=== PATIENT | male | born 1990 | race American Indian/Alaskan Native ===

== ENCOUNTER 2017-10-22 14:57 | Emergency (ER) | payer SELFPAY ==
[2017-10-22 15:15] VITALS: BP 144/100
[2017-10-22] MEDS ORDERED: NORCO 10/325 ONE (15:16)
[2017-10-22] MEDS ORDERED: ZOFRAN ODT ONE (15:16)
[2017-10-22] MEDS ORDERED: NORCO 10/325 PO ONE (15:40)
[2017-10-22] MEDS ORDERED: ZOFRAN ODT PO ONE (15:40)
--- NOTE | 2017-10-22 17:04 | XRay Report ---
FINAL REPORT EXAM: XR FINGER(S) 2+V RT HISTORY: pain r/t deep laceration COMPARISON: None. TECHNIQUE: Two views of the 2nd and 4th digits FINDINGS: There is a linear lucency at the medial base of the distal phalanx of the 4th digit that may represent a nondisplaced fracture. The remainder of the bones are intact. The joint spaces are preserved. There is no radiopaque foreign body. IMPRESSION: Possible nondisplaced fracture of the distal phalanx of the 4th digit. The remainder of the bones are intact.
[2017-10-22] MEDS ORDERED: NORCO 5/325 ONE (19:45)
[2017-10-22] MEDS ORDERED: NORCO 5/325 PO ONE (19:47)
[2017-10-22] MEDS ORDERED: TRIPLE ANTIBIOTIC TP ONE (19:48)
[2017-10-22] MEDS ORDERED: BOOSTRIX IM ONE (19:48)
[2017-10-22] MEDS ORDERED: ROCEPHIN IM ONE (19:49)
[2017-10-22] MEDS ORDERED: XYLOCAINE 1% MPF 5 mL INFILTRATI ONE (19:49)
--- NOTE | 2017-10-22 19:50 | Emergency Department Report ---
- General Chief Complaint: Wound/Laceration Stated Complaint: RIGHT HAND FINGER LACERATION Time Seen by Provider: 10/22/17 19:32 Source: patient Mode of arrival: Ambulatory Limitations: No Limitations - History of Present Illness Initial Comments: 27-year-old male past medical history hypertension presents with complaint of lacerations to right hand on index finger and ring finger. As per patient while he was under the head of his vehicle the radiator fan made contact with his hands. Visible multiple lacerations to index and ring finger right hand. Patient is right-handed. Some visible bleeding. Denies injuries to any other body part. Patient is awake alert and oriented 3. States it is painful. He is unaware of last tetanus up-to-date. -: This afternoon Location: other Extremity Location: Right: Hand Place: home Patient Tetanus UTD: No Context: accidental Associated Symptoms: pain - Related Data Previous Rx's Medication Instructions Recorded Last Taken Type Acetaminophen/Codeine [Tylenol 1 tab PO Q6H PRN #10 tab 10/22/17 Unknown Rx /Codeine # 3 tab] Bacitracin Zinc Oint [Antibiotic 1 applicatio TP BID #1 tube 10/22/17 Unknown Rx Oint] Cephalexin [Keflex] 500 mg PO BID #20 capsule 10/22/17 Unknown Rx Ibuprofen [Motrin] 800 mg PO Q8HR PRN #20 tablet 10/22/17 Unknown Rx Allergies Allergy/AdvReac Type Severity Reaction Status Date / Time No Known Allergies Allergy Unverified 10/22/17 15:15 ED Review of Systems ROS: Stated complaint: RIGHT HAND FINGER LACERATION Other details as noted in HPI Constitutional: denies: chills, fever Eyes: denies: eye pain, eye discharge, vision change ENT: denies: ear pain, throat pain Respiratory: denies: cough, shortness of breath, wheezing Cardiovascular: denies: chest pain, palpitations Endocrine: no symptoms reported Gastrointestinal: denies: abdominal pain, nausea, diarrhea Genitourinary: denies: urgency, dysuria Musculoskeletal: as per HPI (injury to right hand today). denies: back pain, joint swelling, arthralgia Skin: denies: rash, lesions Neurological: denies: headache, weakness, paresthesias Psychiatric: denies: anxiety, depression Hematological/Lymphatic: denies: easy bleeding, easy bruising ED Past Medical Hx - Past Medical History Previous Medical History?: No Hx Hypertension: Yes - Social History Smoking Status: Unknown if ever smoked Substance Use Type: None - Medications Home Medications: Home Medications Medication Instructions Recorded Confirmed Last Taken Type Acetaminophen/Codeine [Tylenol 1 tab PO Q6H PRN #10 tab 10/22/17 Unknown Rx /Codeine # 3 tab] Bacitracin Zinc Oint [Antibiotic 1 applicatio TP BID #1 tube 10/22/17 Unknown Rx Oint] Cephalexin [Keflex] 500 mg PO BID #20 capsule 10/22/17 Unknown Rx Ibuprofen [Motrin] 800 mg PO Q8HR PRN #20 tablet 10/22/17 Unknown Rx ED Physical Exam - General Limitations: No Limitations General appearance: alert, in no apparent distress - Head Head exam: Present: atraumatic, normocephalic - Eye Eye exam: Present: normal appearance, PERRL, EOMI - ENT ENT exam: Present: mucous membranes moist - Neck Neck exam: Present: normal inspection - Respiratory Respiratory exam: Present: normal lung sounds bilaterally. Absent: respiratory distress - Cardiovascular Cardiovascular Exam: Present: regular rate, normal rhythm. Absent: systolic murmur, diastolic murmur, rubs, gallop - GI/Abdominal GI/Abdominal exam: Present: soft, normal bowel sounds - Rectal Rectal exam: Present: deferred - Extremities Exam Extremities exam: Present: normal inspection - Expanded Upper Extremity Exam Right Shoulder Exam: Present: normal inspection, full ROM Upper Arm exam: Present: normal inspection, full ROM Elbow exam: Present: normal inspection, full ROM Forearm Wrist exam: Present: normal inspection, full ROM Hand Wrist exam: Present: tenderness, swelling, abrasion, laceration Hand L/R Front: 1 - Positive: laceration (diagonal 1 cm lacerations here with small avulsion) 2 - Positive: laceration (small piece of avulsed skin with associated jagged laceration), avulsion Neuro motor exam: Present: wrist extension intact, thumb opposition intact, thumb IP flexion intact, thumb adduction intact, fingers 2-5 abduction intact, other (lumbrical motion intact. Flexion and extension clinically intact all joints right hand and fingers including MCPs DIPs and PIPs. Flexion and extension intact against resistance all fingers and hand) Neurosensory exam: Present: radial nerve intact, ulnar nerve intact (distal sensation all fingers clinically intact to proprioception and light touch), median nerve intact Vascular: Present: normal capillary refill (capillary refill less than one second all fingers), radial pulse (distal radial brachial and ulnar pulses strong to palpation), brachial pulse, ulnar pulse - Back Exam Back exam: Present: normal inspection - Neurological Exam Neurological exam: Present: alert, oriented X3, CN II-XII intact, normal gait - Psychiatric Psychiatric exam: Present: normal affect, normal mood - Skin Skin exam: Present: warm, dry, intact, normal color. Absent: rash ED Course Vital Signs 10/22/17 10/22/17 15:10 15:41 Temperature 98 F Pulse Rate 110 H Respiratory 20 20 Rate Blood Pressure 144/100 O2 Sat by Pulse 98 Oximetry - Laceration /Wound Repair Right Distal Finger Wound Location: upper extremity (right distal index and ring fingers) Wound Length (cm): 2 Wound's Depth, Shape: irregular Irrigated w/ Saline (ccs): 500 Anesthesia: 1% Lidocaine Volume Anesthetic (ccs): 3 Wound Repaired With: sutures Suture Size/Type: 4:0, nylon Number of Sutures: 5 Sterile Dressing Applied?: Yes (Xeroform with gauze wrap) Progress: Digital blocks performed for both index and ring fingers right hand. Good local anesthesia achieved. 2 sutures placed at index finger at site of laceration and 3 at distal tuft of ring finger. Moderate closure achieved. Both areas had some avulsed skin. Area of avulsion covered with Xeroform then dry gauze and finger splints placed on both fingertips. Area is cleaned with iodine tap water and saline bath before closure. Procedure tolerated well. Minimal bleeding. Neurovascular exam of right hand and digits clinically normal. ED Medical Decision Making - Medical Decision Making A/P: Multiple abrasions and lacerations right distal index and ring finger, skin avulsions, fingertip fracture 1-patient given dose of ceftriaxone while in ED, ten-day course of Keflex. I educated patient on wound care and advised them to return to the ED for any signs of pus drainage erythema foul odor or significant pain or worsening pain and swelling at site of both index and ring finger lacerations. Tetanus vaccine updated today 2-Motrin and Tylenol 3 when necessary 3-bacitracin to superficial abrasions 4- I provided patient with follow-up information for [facility] and shoulder and elbow orthopedics 5- vital signs stable before discharge. Wound check in 48-72 hours in the ED Critical Care Time: Yes (90minutes) Critical care attestation.: If time is entered above; I have spent that time in minutes in the direct care of this critically ill patient, excluding procedure time. Critical Care Time: I spent at least 90 minutes taking care of this patient including 45 minutes suturing his wounds ED Disposition Clinical Impression: Abrasion of finger of right hand Qualifiers: Encounter type: initial encounter Qualified Code(s): S60.419A - Abrasion of unspecified finger, initial encounter Finger laceration Qualifiers: Encounter type: initial encounter Finger: index finger Damage to nail status: without damage Foreign body presence: without foreign body Laterality: right Qualified Code(s): S61.210A - Laceration without foreign body of right index finger without damage to nail, initial encounter Laceration of ring finger Qualifiers: Encounter type: initial encounter Damage to nail status: with damage Foreign body presence: without foreign body Laterality: right Qualified Code(s): S61.314A - Laceration without foreign body of right ring finger with damage to nail, initial encounter Disposition: TO HOME OR SELFCARE Is pt being admited?: No Does the pt Need Aspirin: No Condition: Stable Instructions: Suture Care (ED), Laceration (ED), Finger Fracture (ED), Finger Laceration (ED), Abrasion (ED) Additional Instructions: Wound check in 48-72 hours in the ED [email or web address] Prescriptions: Acetaminophen/Codeine [Tylenol /Codeine # 3 tab] 1 tab PO Q6H PRN #10 tab PRN Reason: Pain Bacitracin Zinc Oint [Antibiotic Oint] 1 applicatio TP BID #1 tube Cephalexin [Keflex] 500 mg PO BID #20 capsule Ibuprofen [Motrin] 800 mg PO Q8HR PRN #20 tablet PRN Reason: Pain Referrals: JOURDAN MADSEN MD [Staff Physician] - 3-5 Days [facility] [Provider Group] - 3-5 Days [facility] [Provider Group] - 3-5 Days Forms: Work/School Release Form(ED) Time of Disposition: 21:49
[2017-10-22] MEDS ORDERED: XYLOCAINE 2% INFILTRATI ONE (19:53)
== END 2017-10-22 22:00 | disposition home or self-care (01) ==
LOC: ED 14:57
DX: S61.314A Laceration without foreign body of right ring finger with damage to nail, initial encounter (principal); S61.210A Laceration without foreign body of right index finger without damage to nail, initial encounter; I10 Essential (primary) hypertension; Y29.XXXA Contact with blunt object, undetermined intent, initial encounter; Y93.89 Activity, other specified; Y99.8 Other external cause status; Y92.009 Unspecified place in unspecified non-institutional (private) residence as the place of occurrence of the external cause
CPT/HCPCS: 12001; 73140; 90471; 90715; 96372; 99291; J0696; 99292; A6250; Q0162